=== PATIENT | female | born 1985 | race Caucasian/White ===

== ENCOUNTER 2016-11-11 20:47 | Inpatient (IN) | payer OTHER ==
[~2016-11-11] VITALS: Ht 170.2 cm; Wt 81.8 kg
[2016-11-11] MEDS ORDERED: SODIUM CHLORIDE 0.9% 1000ML 1,000 ML IV STA ×2 (21:13→23:41)
[2016-11-11] MEDS ORDERED: ONDANSETRON INJ 2 MG/ML 2 ML VIAL IV STA ×2 (21:13→23:41)
[2016-11-11 21:55] LABS: BASO % 0.2 %; BASO ABS # 0.01 K/uL (0-0.2); COMPLETE YES; EOS % 1.4 %; HEMATOCRIT 39.7 % (37-47); IG% 0.5 %; LYMPH % 35.1 %; LYMPH ABS # 2.25 K/uL (1.2-3.4); MEAN CELL VOLUME 81.9 fL (80-100); MEAN CORPUSCULAR HEMOGLOBIN 27.6 pg (25-34); MEAN CORPUSCULAR HGB CONC 33.8 g/dl (32-36); MONO % 6.7 %; NEUT % 56.1 %; PLATELET COUNT 263 K/uL (130-400); RED BLOOD COUNT 4.85 M/uL (4.2-5.4); WHITE BLOOD COUNT 6.41 K/uL (4.8-10.8)
[2016-11-11 22:13] LABS: BUN/CREATININE RATIO 5.2 (10-20); CREATININE 0.84 mg/dl (0.60-1.20); POTASSIUM 3.4 mmol/L (3.5-5.1)
[2016-11-11 22:16] LABS: ALB/GLOB RATIO 1.1 (0.9-2)
[2016-11-11 22:21] LABS: CALCIUM 8.2 mg/dl (8.5-10.1)
--- NOTE | 2016-11-11 23:01 | DIAGNOSTIC IMAGING REPORT ---
CHEST AND ABDOMEN 2 VIEWS HISTORY: epigastric pain, vomiting COMPARISON: None. FINDINGS: The lungs are clear. The cardiomediastinal silhouette is within normal limits. There is no pneumoperitoneum or pneumatosis. The bowel gas pattern is unremarkable. No evidence for bowel obstruction. No renal stones. Cholelithiasis. An intrauterine device is seen within the mid pelvis. IMPRESSION: No acute cardiopulmonary process. No evidence for bowel obstruction. Cholelithiasis. Electronically signed by: Imer Holt M.D. 11/11/2016 10:59 PM Dictated Date/Time: 11/11/2016 10:58 PM
[2016-11-11] MEDS ORDERED: MoRPHine SULFATE 10 MG/ML CARP/VIAL IV STA (23:51)
[2016-11-12] MEDS ORDERED: MoRPHine SULFATE 4 MG/ML 1 ML CARP\\VIAL ONE (00:10)
[2016-11-12] MEDS ORDERED: MoRPHine SULFATE 2 MG/ML CARP ONE (00:10)
--- NOTE | 2016-11-12 00:15 | EMERGENCY ROOM VISIT NOTE ---
History First contact with patient: 20:54 Chief Complaint: VOMITING Stated Complaint: NAUSEA,VOMITING,FEVER, WEAKNESS,LOSS OF COLOR Nursing Triage Summary: N/V, abdominal cramps & generalized aches for 3 days. Reports 101F temp 11/10/16- treated with Tylenol. History of Present Illness The patient is a 31 year old female who presents to the Emergency Room with complaints of vomiting and epigastric pain. The patient states that 2 days ago , she ate a meal of khmer fries, fried pickles and fried chicken. About one hour afterward, she developed epigastric abdominal pain and vomiting. She states that she has had continued vomiting and has not been able to keep down anything to eat or drink. She reports the pain is located in her upper abdomen and is crampy in nature. She rates the current discomfort a 4/10. She also states she has had hot and cold flashes. She does report a history of gallbladder issues but has not had her gallbladder removed. She was told she had gallbladder stones at age 15. She has had a previous laparoscopy for ovarian cyst removal and appendectomy. She also reports a history of myocardial infarction but states that she does not follow-up with cardiology for this. She denies any changes in bowel movements, chest pain, shortness of breath or urinary symptoms. She denies any blood in her vomit. Review of Systems A complete 10 point review of systems was reviewed with the patient with pertinent positives and negatives as per history of present illness. All else were negative. Past Medical/Surgical History Medical Problems: (1) Acute calculous cholecystitis Social History Smoking Status: Former Smoker Current/Historical Medications Scheduled Amphetamine-Dextroamphetamine 30MG (Adderall Xr 30MG), 30 MG PO DAILY Desvenlafaxine Succinate Er (Pristiq), 50 MG PO DAILY Risperidone (Risperdal), 2 MG PO HS Allergies Coded Allergies: Paroxetine (Verified Allergy, Severe, SOB/HALLUCINATIONS, 11/12/16) Metoclopramide (Verified Allergy, Intermediate, HIVES, 11/12/16) Prochlorperazine (Verified Allergy, Intermediate, HIVES, 11/12/16) Promethazine (Verified Allergy, Intermediate, HIVES, 11/12/16) Physical Exam Vital Signs Date Time Temp Pulse Resp B/P Pulse Ox O2 Delivery O2 Flow Rate FiO2 11/12/16 00:27 77 16 125/68 97 Room Air 5/28/17 23:33 81 16 106/67 99 Room Air 11/11/16 20:51 37.0 118 20 111/69 95 Room Air Physical Exam VITALS: Vitals are noted on the nurse's note and reviewed by myself. Vital signs stable. GENERAL: This is a 31-year-old female, in no acute distress, nondiaphoretic, well-developed well-nourished. SKIN: Capillary reflex less than 2 seconds. HEENT: Normocephalic. PERRLA. EOMI. Nares patent. Mucous membranes moist. Neck is supple without nuchal rigidity. HEART: Regular rate and rhythm without murmurs gallops or rubs. LUNGS: Clear to auscultation bilaterally without wheezes, rales or rhonchi. ABDOMEN: Positive bowel sounds x 4. Soft, moderate tenderness to palpation of the epigastric region and right upper quadrant. No guarding or rebound tenderness. NEURO: Patient was alert and oriented to person place and time. Medical Decision & Procedures ER Provider Diagnostic Interpretation: CHEST AND ABDOMEN 2 VIEWS FINDINGS: The lungs are clear. The cardiomediastinal silhouette is within normal limits. There is no pneumoperitoneum or pneumatosis. The bowel gas pattern is unremarkable. No evidence for bowel obstruction. No renal stones. Cholelithiasis. An intrauterine device is seen within the mid pelvis. IMPRESSION: No acute cardiopulmonary process. No evidence for bowel obstruction. Cholelithiasis. US GALLBLADDER: Cholelithiasis including a 1 cm impacted stone in the gallbladder neck. Borderline gallbladder wall thickness. Normal caliber common bile duct. Heterogenous echogenic liver parenchyma, can be seen with fatty infiltration or other etiologies. Pancreas not well visualized. Radiologist: Zayra Cuevas MD Laboratory Results 11/11/16 21:45 Red Blood Count 4.85, Mean Corpuscular Volume 81.9, Mean Corpuscular Hemoglobin 27.6, Mean Corpuscular Hemoglobin Concent 33.8, Mean Platelet Volume 11.0, Neutrophils (%) (Auto) 56.1, Lymphocytes (%) (Auto) 35.1, Monocytes (%) (Auto) 6.7, Eosinophils (%) (Auto) 1.4, Basophils (%) (Auto) 0.2, Neutrophils # (Auto) 3.60, Lymphocytes # (Auto) 2.25, Monocytes # (Auto) 0.43, Eosinophils # (Auto) 0.09, Basophils # (Auto) 0.01 11/11/16 21:45 Test 11/11/16 21:45 White Blood Count 6.41 K/uL (4.8-10.8) Red Blood Count 4.85 M/uL (4.2-5.4) Hemoglobin 13.4 g/dL (12.0-16.0) Hematocrit 39.7 % (37-47) Mean Corpuscular Volume 81.9 fL (80-100) Mean Corpuscular Hemoglobin 27.6 pg (25-34) Mean Corpuscular Hemoglobin Concent 33.8 g/dl (32-36) Platelet Count 263 K/uL (130-400) Mean Platelet Volume 11.0 fL (7.4-10.4) Neutrophils (%) (Auto) 56.1 % Lymphocytes (%) (Auto) 35.1 % Monocytes (%) (Auto) 6.7 % Eosinophils (%) (Auto) 1.4 % Basophils (%) (Auto) 0.2 % Neutrophils # (Auto) 3.60 K/uL (1.4-6.5) Lymphocytes # (Auto) 2.25 K/uL (1.2-3.4) Monocytes # (Auto) 0.43 K/uL (0.11-0.59) Eosinophils # (Auto) 0.09 K/uL (0-0.5) Basophils # (Auto) 0.01 K/uL (0-0.2) RDW Standard Deviation 40.6 fL (36.4-46.3) RDW Coefficient of Variation 13.5 % (11.5-14.5) Immature Granulocyte % (Auto) 0.5 % Immature Granulocyte # (Auto) 0.03 K/uL (0.00-0.02) Anion Gap 10.0 mmol/L (3-11) Est Creatinine Clear Calc Drug Dose 105.5 ml/min Estimated GFR () 108.9 Estimated GFR (Non- 93.9 BUN/Creatinine Ratio 5.2 (10-20) Calcium Level 8.2 mg/dl (8.5-10.1) Total Bilirubin 0.2 mg/dl (0.2-1) Aspartate Amino Transf (AST/SGOT) 22 U/L (15-37) Alanine Aminotransferase (ALT/SGPT) 34 U/L (12-78) Alkaline Phosphatase 87 U/L (45-117) Total Protein 7.8 gm/dl (6.4-8.2) Albumin 4.0 gm/dl (3.4-5.0) Globulin 3.8 gm/dl (2.5-4.0) Albumin/Globulin Ratio 1.1 (0.9-2) Lipase 208 U/L (73-393) Medications Administered Medications (Trade) Dose Ordered Sig/Brunilda Route Start Time Stop Time Status Last Admin Dose Admin Sodium Chloride (Nss 1000ml) 1,000 ml @ 999 mls/hr Q1H1M STAT IV 11/11/16 21:13 11/11/16 22:13 DC 11/11/16 21:59 999 MLS/HR Ondansetron HCl 4 mg 4 mg NOW STAT IV 11/11/16 21:13 11/11/16 21:14 DC 11/11/16 21:59 4 MG Sodium Chloride (Nss 1000ml) 1,000 ml @ 999 mls/hr Q1H1M STAT IV 11/11/16 23:41 11/12/16 00:41 DC 11/12/16 00:18 999 MLS/HR Ondansetron HCl (Zofran Inj) 4 mg NOW STAT IV 11/11/16 23:41 11/11/16 23:42 DC 11/12/16 00:16 4 MG Morphine Sulfate (MoRPHine SULFATE INJ) 2 mg STK-MED ONCE .ROUTE 11/12/16 00:10 11/12/16 00:11 DC 11/12/16 00:18 2 MG Morphine Sulfate 4 mg 4 mg STK-MED ONCE .ROUTE 11/12/16 00:10 11/12/16 00:11 DC 11/12/16 00:17 4 MG Lactated Ringer's (Lr 1000ml) 1,000 ml @ 100 mls/hr Q10H IV 11/12/16 00:25 12/12/16 00:24 11/12/16 20:18 100 MLS/HR ED Course The patient was evaluated as above. Labs were drawn and IV access was obtained. Patient was medicated with 1 L normal saline solution and 4 mg Zofran IV. She declined analgesics. Right upper quadrant ultrasound was performed and read by stat rad as above. Patient was reevaluated and complained of continued nausea and worsening pain. At this time, she was given 6 mg morphine IV, 4 mg Zofran IV and an additional 1 L bolus. Case was discussed with Dr. Paez, the general surgeon education faculty member. He will evaluate the patient. Medical Decision Differential diagnosis includes cholecystitis, pancreatitis, pyelonephritis, gastritis, gastric ulcer, among others. The patient is a 31-year-old female who presents today complaining of abdominal pain and vomiting. The patient does report a history of gallbladder stones. Labs revealed no leukocytosis, concerning anemia or electrolyte abnormalities. Glucose was mildly elevated. Patient has no history of diabetes. Abdominal series showed no evidence of obstruction. Right upper quadrant ultrasound was performed and did show an impacted stone in the gallbladder neck and borderline wall thickening. In this setting, I do feel this represents an acute cholecystitis. Case was discussed with the general surgeon education faculty member who agreed to evaluate the patient. Please see his notes for patient course and disposition. Impression Primary Impression: Acute cholecystitis Departure Information Referrals No Doctor, Assigned (PCP) Patient Instructions My [facility]
--- NOTE | 2016-11-12 00:25 | History and Physical ---
History & Physical Date & Time of Service: November 12, 2016 at 00:19 Chief Complaint: Nausea,Vomiting,Fever, Weakness,Loss Of Color Primary Care Physician: No Doctor, Assigned History of Present Illness Source: patient, family 2-3 days of upper abd pain, nausea and vomiting to ER- U/S showing thickened gb w/ stone in neck of gb wbc, LFTs ok Social History Smoking Status: Former Smoker Allergies Coded Allergies: Paroxetine (Verified Allergy, Severe, SOB/HALLUCINATIONS, 11/12/16) Metoclopramide (Verified Allergy, Intermediate, HIVES, 11/12/16) Prochlorperazine (Verified Allergy, Intermediate, HIVES, 11/12/16) Promethazine (Verified Allergy, Intermediate, HIVES, 11/12/16) Review of Systems Constitutional: No chills, No fever Respiratory: No cough, No shortness of breath Cardiovascular: No chest pain Abdomen: + nausea, + pain, + vomiting Musculoskeletal: + joint pain Genitourinary - Female: No dysuria Neurologic: No weakness Endocrine: No fatigue Integumentary: No rash Physical Exam Vital Signs Date Time Temp Pulse Resp B/P Pulse Ox O2 Delivery O2 Flow Rate FiO2 11/11/16 23:33 81 16 106/67 99 Room Air 11/11/16 20:51 37.0 118 20 111/69 95 Room Air General Appearance: WD/WN, no apparent distress Head: atraumatic Neck: supple Respiratory/Chest: normal breath sounds, no respiratory distress Cardiovascular: regular rate, rhythm Abdomen/GI: soft, + tenderness (RUQ and epigastric tenderness) Extremities/Musculoskelatal: no pedal edema Neurologic/Psych: alert Skin: no rash Diagnostics Laboratory Results Results Past 24 Hours Test 11/11/16 21:45 Range/Units White Blood Count 6.41 4.8-10.8 K/uL Red Blood Count 4.85 4.2-5.4 M/uL Hemoglobin 13.4 12.0-16.0 g/dL Hematocrit 39.7 37-47 % Mean Corpuscular Volume 81.9 80-100 fL Mean Corpuscular Hemoglobin 27.6 25-34 pg Mean Corpuscular Hemoglobin Concent 33.8 32-36 g/dl Platelet Count 263 130-400 K/uL Mean Platelet Volume 11.0 7.4-10.4 fL Neutrophils (%) (Auto) 56.1 % Lymphocytes (%) (Auto) 35.1 % Monocytes (%) (Auto) 6.7 % Eosinophils (%) (Auto) 1.4 % Basophils (%) (Auto) 0.2 % Neutrophils # (Auto) 3.60 1.4-6.5 K/uL Lymphocytes # (Auto) 2.25 1.2-3.4 K/uL Monocytes # (Auto) 0.43 0.11-0.59 K/uL Eosinophils # (Auto) 0.09 0-0.5 K/uL Basophils # (Auto) 0.01 0-0.2 K/uL RDW Standard Deviation 40.6 36.4-46.3 fL RDW Coefficient of Variation 13.5 11.5-14.5 % Immature Granulocyte % (Auto) 0.5 % Immature Granulocyte # (Auto) 0.03 0.00-0.02 K/uL Sodium Level 142 136-145 mmol/L Potassium Level 3.4 3.5-5.1 mmol/L Chloride Level 107 98-107 mmol/L Carbon Dioxide Level 25 21-32 mmol/L Anion Gap 10.0 3-11 mmol/L Blood Urea Nitrogen 4 7-18 mg/dl Creatinine 0.84 0.60-1.20 mg/dl Est Creatinine Clear Calc Drug Dose 105.5 ml/min Estimated GFR () 108.9 Estimated GFR (Non- 93.9 BUN/Creatinine Ratio 5.2 10-20 Random Glucose 146 70-99 mg/dl Calcium Level 8.2 8.5-10.1 mg/dl Total Bilirubin 0.2 0.2-1 mg/dl Aspartate Amino Transf (AST/SGOT) 22 15-37 U/L Alanine Aminotransferase (ALT/SGPT) 34 12-78 U/L Alkaline Phosphatase 87 45-117 U/L Total Protein 7.8 6.4-8.2 gm/dl Albumin 4.0 3.4-5.0 gm/dl Globulin 3.8 2.5-4.0 gm/dl Albumin/Globulin Ratio 1.1 0.9-2 Lipase 208 73-393 U/L Impression Assessment and Plan 11/12/16- admit with abd pain, N/V- stone in neck of gb- consistent with acute cholecystitis- for laparoscopic kris tomorrow h/o Rheum arthritis, possible cardiac issue in 2013- will ask medical team to check pt
[2016-11-12] MEDS ORDERED: HYDROmorphone INJ 0.5 MG/0.5 ML SYR IV PRN (00:30)
[2016-11-12 00:59] VITALS: BP 125/68; PULSE 79; TEMP 36.7; O2SAT 95; Ht 170.2 cm; Wt 81.8 kg
[2016-11-12] MEDS ORDERED: RISP2TAB22 PO (01:01)
[2016-11-12] MEDS ORDERED: DESV50TA PO (01:01)
[2016-11-12] MEDS ORDERED: AMPH30CA3 PO (01:01)
[2016-11-12 02:09] VITALS: BP 130/88; PULSE 78; TEMP 36.7; O2SAT 96
[2016-11-12] MEDS: LACTATED RINGER'S 1000ML 1,000 ML IV SCH ×3 (02:20→20:18)
[2016-11-12] MEDS: CEFOXITIN IV 1,000 MG in DEXTROSE 5% 50ML 50 ML IV SCH ×4 (02:46→20:18)
[2016-11-12] MEDS ORDERED: BUPRENORPHINE 5 MCG/HR TDSY TD SCH (03:30)
--- NOTE | 2016-11-12 03:51 | Medical Consult ---
Consultation Date of Consultation: November 12, 2016. Attending Physician: Chirag Paez M.D. Reason for Consultation: Pre-op History of Present Illness 31 y/o F Hx RA, depression, ADHD, MD in 2013. Pt is visiting from [place]. Developed acute RUQ abdominal pain which was unremitting and she presented to the hospital. An US revealed cholecystitis with an impacted 1cm stone at the gallbladder neck. She was admitted for a cholecystectomy by the surgical service. A consult was requested due to her unusual medical history. The pt states that she had an MD in 2013 although the reason was unspecified. She was told to follow-up with a tube drawing supervisor and was unable to do so at the time. She recently had a normal echocardiogram, however, she then had an abnormal stress test and is scheduled to see her tube drawing supervisor again in the coming month. She states that her father had an MD at the age of 18 for unknown reasons. She did not have a cardiac catheterization and was told that her MD was due to stress which may indicate underlying vasospastic disease. It is notable that she takes Adderall fro ADHD which is not likely to be prescribed to an individual with coronary vasospastic disease. The pt was diagnosed with RA several moths ago. She has not yet seen a technology sales consultant as she states it takes a very long time to do so in [facility]. She is being treated symptomatically only with a Buprenorphine patch. She has chronic joint pain most pronounced in her knees. She has not had major surgery previously. She denies significant SOB or CP with exertion although her exercise tolerance is difficult to gauge. She does not normally ascend stairs and does not exercise beyond walking. EKG reviewed: NSR, normal axis - no evidence of previous MD Past Medical/Surgical History 1) MD - unknown etiology - 2014 - recent abnormal stress test 2) ADHD 3) Depression 4) RA Family History Father had an MD at age 18 and again in his 40s Mother has RA Social History She does not drink or smoke She attends art school in [facility] She denies any drug use Smoking Status: Former Smoker Alcohol Use: none Allergies Coded Allergies: Paroxetine (Verified Allergy, Severe, SOB/HALLUCINATIONS, 11/12/16) Metoclopramide (Verified Allergy, Intermediate, HIVES, 11/12/16) Prochlorperazine (Verified Allergy, Intermediate, HIVES, 11/12/16) Promethazine (Verified Allergy, Intermediate, HIVES, 11/12/16) Current Inpatient Medications Current Inpatient Medications Medications (Trade) Dose Ordered Sig/Brunilda Route Start Time Stop Time Status Last Admin Dose Admin Lactated Ringer's 1,000 ml @ 100 mls/hr Q10H IV 11/12/16 00:25 12/12/16 00:24 11/12/16 02:20 100 MLS/HR Cefoxitin Sodium/ Dextrose (Mefoxin IV/D5 50ml) 60 ml @ 100 mls/hr Q6H IV 11/12/16 02:00 11/22/16 01:59 11/12/16 02:46 100 MLS/HR Hydromorphone HCl (Dilaudid Inj) FOR PAIN 0.5-1MG 0.5MG ... Q3H PRN IV 11/12/16 00:30 11/26/16 00:29 Ondansetron HCl (Zofran Inj) 4 mg Q6H PRN IV 11/12/16 00:30 12/12/16 00:29 Review of Systems Constitutional: No chills, No fever, No sweats Eyes: No eye pain, No worsening of vision ENT: No hearing loss, No nasal symptoms, No unusual epistaxis Respiratory: No cough, No sputum, No wheezing Cardiovascular: No PND, No chest pain, No orthopnea Abdomen: + nausea, + pain, No vomiting Musculoskeletal: + joint pain, No muscle pain Genitourinary - Female: No dysuria, No hematuria, No urinary frequency, No urinary incontinence, No urinary retention, No urinary urgency Neurologic: No memory loss, No paralysis, No weakness Psychiatric: No depression symptoms Endocrine: No fatigue Hematologic / Lymphatic: No abnormal bleeding/bruising Integumentary: No rash Allergic / Immunologic: No environmental allergies Physical Exam Date Time Temp Pulse Resp B/P Pulse Ox O2 Delivery O2 Flow Rate FiO2 11/12/16 02:12 Room Air 11/12/16 02:09 36.7 78 16 130/88 96 Room Air 11/12/16 00:59 36.7 79 16 125/68 95 Room Air 11/12/16 00:27 77 16 125/68 97 Room Air 11/11/16 23:33 81 16 106/67 99 Room Air 11/11/16 20:51 37.0 118 20 111/69 95 Room Air General Appearance: WD/WN, no apparent distress Head: normocephalic, atraumatic Eyes: normal inspection, EOMI ENT: normal ENT inspection, pharynx normal Neck: supple, no JVD Respiratory/Chest: chest non-tender, lungs clear, normal breath sounds, no respiratory distress, no accessory muscle use Cardiovascular: regular rate, rhythm, no edema, no gallop, no JVD, no murmur, normal peripheral pulses Abdomen/GI: normal bowel sounds, soft, + tenderness Back: normal inspection, no CVA tenderness, no muscle spasm, normal range of motion Extremities/Musculoskelatal: normal inspection, no calf tenderness, normal capillary refill, no pedal edema, normal range of motion Neurologic/Psych: farmer vegetable II-XII nml as tested, no motor/sensory deficits, alert, normal mood/affect, normal reflexes, oriented x 3 Skin: normal color, warm/dry, no rash Laboratory Results Last 24 Hours Test 11/11/16 21:45 White Blood Count 6.41 K/uL Red Blood Count 4.85 M/uL Hemoglobin 13.4 g/dL Hematocrit 39.7 % Mean Corpuscular Volume 81.9 fL Mean Corpuscular Hemoglobin 27.6 pg Mean Corpuscular Hemoglobin Concent 33.8 g/dl Platelet Count 263 K/uL Mean Platelet Volume 11.0 fL Neutrophils (%) (Auto) 56.1 % Lymphocytes (%) (Auto) 35.1 % Monocytes (%) (Auto) 6.7 % Eosinophils (%) (Auto) 1.4 % Basophils (%) (Auto) 0.2 % Neutrophils # (Auto) 3.60 K/uL Lymphocytes # (Auto) 2.25 K/uL Monocytes # (Auto) 0.43 K/uL Eosinophils # (Auto) 0.09 K/uL Basophils # (Auto) 0.01 K/uL RDW Standard Deviation 40.6 fL RDW Coefficient of Variation 13.5 % Immature Granulocyte % (Auto) 0.5 % Immature Granulocyte # (Auto) 0.03 K/uL Sodium Level 142 mmol/L Potassium Level 3.4 mmol/L Chloride Level 107 mmol/L Carbon Dioxide Level 25 mmol/L Anion Gap 10.0 mmol/L Blood Urea Nitrogen 4 mg/dl Creatinine 0.84 mg/dl Est Creatinine Clear Calc Drug Dose 105.5 ml/min Estimated GFR () 108.9 Estimated GFR (Non- 93.9 BUN/Creatinine Ratio 5.2 Random Glucose 146 mg/dl Calcium Level 8.2 mg/dl Total Bilirubin 0.2 mg/dl Aspartate Amino Transf (AST/SGOT) 22 U/L Alanine Aminotransferase (ALT/SGPT) 34 U/L Alkaline Phosphatase 87 U/L Total Protein 7.8 gm/dl Albumin 4.0 gm/dl Globulin 3.8 gm/dl Albumin/Globulin Ratio 1.1 Lipase 208 U/L Assessment & Plan 31 y/o F Hx RA, depression, ADHD, MD in 2013. Pt is visiting from [place]. Developed acute RUQ abdominal pain which was unremitting and she presented to the hospital. An US revealed cholecystitis with an impacted 1cm stone at the gallbladder neck. She was admitted for a cholecystectomy by the surgical service. A consult was requested due to her unusual medical history. Based on our available information her RCRI is 0.9% however we cannot r/o Coronary vasospasm or CAD for that matter based on her history. She is not taking any related meds and as mentioned is taking Adderall which further clouds the etiology of her previous MD. Records have been requested from [facility] in [place]. We will consult cardiology to advise on minimizing risk and treating any potential CP which may occur. We will hold her Adderall and cont her depression meds. Additionally she normally wears a Buprenorphine patch and would be prone to narcotic withdrawal. This may also present a challenge if she requires additional Narcotics for pain control as the patch would technically reduce there effectivity. Would recommend reapplying her patch one day after surgery and treating breakthrough pain with non-narcotic analgesics. The above was discussed in detail with the pt and Surgeon.. Total time for this consult - 45 min - outside records are pending
[2016-11-12] MEDS: ONDANSETRON INJ 2 MG/ML 2 ML VIAL IV PRN (06:25)
[2016-11-12] MEDS: HYDROmorphone INJ 1 MG/ML SYR IV PRN ×3 (06:26→21:25)
--- NOTE | 2016-11-12 06:32 | Surgery Progress Note ---
Surgery Progress Note Date of Service November 12, 2016. Subjective some abd pain h/o heart disease- cardio to see per Dr Carrera Objective Vital Signs: Date Time Temp Pulse Resp B/P Pulse Ox O2 Delivery O2 Flow Rate FiO2 11/12/16 02:12 Room Air 11/12/16 02:09 36.7 78 16 130/88 96 Room Air 11/12/16 00:59 36.7 79 16 125/68 95 Room Air 11/12/16 00:27 77 16 125/68 97 Room Air 11/11/16 23:33 81 16 106/67 99 Room Air 11/11/16 20:51 37.0 118 20 111/69 95 Room Air General Appearance: no apparent distress Respiratory/Chest: no respiratory distress Abdomen: soft, + tenderness Laboratory Results: Results Past 24 Hours Test 11/11/16 21:45 Range/Units White Blood Count 6.41 4.8-10.8 K/uL Red Blood Count 4.85 4.2-5.4 M/uL Hemoglobin 13.4 12.0-16.0 g/dL Hematocrit 39.7 37-47 % Mean Corpuscular Volume 81.9 80-100 fL Mean Corpuscular Hemoglobin 27.6 25-34 pg Mean Corpuscular Hemoglobin Concent 33.8 32-36 g/dl Platelet Count 263 130-400 K/uL Mean Platelet Volume 11.0 7.4-10.4 fL Neutrophils (%) (Auto) 56.1 % Lymphocytes (%) (Auto) 35.1 % Monocytes (%) (Auto) 6.7 % Eosinophils (%) (Auto) 1.4 % Basophils (%) (Auto) 0.2 % Neutrophils # (Auto) 3.60 1.4-6.5 K/uL Lymphocytes # (Auto) 2.25 1.2-3.4 K/uL Monocytes # (Auto) 0.43 0.11-0.59 K/uL Eosinophils # (Auto) 0.09 0-0.5 K/uL Basophils # (Auto) 0.01 0-0.2 K/uL RDW Standard Deviation 40.6 36.4-46.3 fL RDW Coefficient of Variation 13.5 11.5-14.5 % Immature Granulocyte % (Auto) 0.5 % Immature Granulocyte # (Auto) 0.03 0.00-0.02 K/uL Sodium Level 142 136-145 mmol/L Potassium Level 3.4 3.5-5.1 mmol/L Chloride Level 107 98-107 mmol/L Carbon Dioxide Level 25 21-32 mmol/L Anion Gap 10.0 3-11 mmol/L Blood Urea Nitrogen 4 7-18 mg/dl Creatinine 0.84 0.60-1.20 mg/dl Est Creatinine Clear Calc Drug Dose 105.5 ml/min Estimated GFR () 108.9 Estimated GFR (Non- 93.9 BUN/Creatinine Ratio 5.2 10-20 Random Glucose 146 70-99 mg/dl Calcium Level 8.2 8.5-10.1 mg/dl Total Bilirubin 0.2 0.2-1 mg/dl Aspartate Amino Transf (AST/SGOT) 22 15-37 U/L Alanine Aminotransferase (ALT/SGPT) 34 12-78 U/L Alkaline Phosphatase 87 45-117 U/L Total Protein 7.8 6.4-8.2 gm/dl Albumin 4.0 3.4-5.0 gm/dl Globulin 3.8 2.5-4.0 gm/dl Albumin/Globulin Ratio 1.1 0.9-2 Lipase 208 73-393 U/L Assessment & Plan 11/12/16- adm with acute cholecystitis- h/o heart disease cardio eval pending- lap kris today or tomorrow if stable. Dr Sadler covering today
--- NOTE | 2016-11-12 07:12 | DIAGNOSTIC IMAGING REPORT ---
ABDOMINAL ULTRASOUND, RIGHT UPPER QUADRANT HISTORY: epigastric pain, vomiting, hx gall stones. COMPARISON: None. FINDINGS: Pancreas: The pancreatic tail is obscured by overlying bowel gas. The remaining portions of the pancreas are within normal limits. Liver: Unremarkable. Gallbladder: Borderline gallbladder wall thickening at 3 mm. Multiple stones within the gallbladder. This includes a 1 cm stone within the neck of the gallbladder which may be impacted. CBD: 4 mm. Right kidney: No hydronephrosis. IMPRESSION: Borderline gallbladder wall thickening. Multiple stones within the gallbladder. This includes a 1 cm stone within the neck of the gallbladder which may be impacted. Electronically signed by: Imer Holt M.D. 11/12/2016 7:10 AM Dictated Date/Time: 11/12/2016 7:08 AM
[2016-11-12 07:32] VITALS: BP 103/72; PULSE 65; TEMP 36.6; O2SAT 96
[2016-11-12 12:04] LABS: CHOLESTEROL/HDL RATIO 5.7
--- NOTE | 2016-11-12 12:12 | SURGERY PROGRESS NOTE ---
DATE: 11/12/2016 Jenny is resting comfortably. I discussed her case with Dr. Middleton who at this point will not have any cardiac clearance until tomorrow and waiting to get records from her hospitalization from out of town The patient is hungry. Therefore, we will feed her today and tentatively keep her n.p.o. after midnight for possibly a gallbladder tomorrow either by myself or Dr. Paez, once cleared by cardiology. GILL
--- NOTE | 2016-11-12 14:24 | CARDIOLOGY CONSULTATION ---
DATE OF CONSULTATION: 11/12/2016 REFERRING PHYSICIAN: Lee Carrera MD ATTENDING PHYSICIAN: Chirag Paez MD CONSULTING PHYSICIAN: Enrico Leigh JR, MD HISTORY OF PRESENT ILLNESS: The patient is a 31-year-old white female. She lives in [facility]. She is currently visiting the [facility]. On November 09, she developed right upper quadrant pain associated with nausea and vomiting. She subsequently presented to [facility] on the evening of November 11. She has since been admitted to the surgical floor with a diagnosis of acute calculus cholecystitis. Her gallbladder ultrasound performed on November 11 revealed borderline gallbladder wall thickening, multiple stones within the gallbladder, including a 1-cm stone within the neck of the gallbladder, which may be impacted. The patient currently denies any abdominal pain after receiving analgesics. She denies any fevers or chills. No current nausea or vomiting. Recently, she has had constipation. She denies any GI bleeding. The patient had medical consultation with Dr. Carrera overnight. She reported history of a "myocardial infarction" in 2013. She states she was hospitalized at [facility] in [place], [place]. She was hospitalized for 2 days. She was told that she had a myocardial infarction. She does not recall whether this was based on an electrocardiogram or on cardiac enzymes. She had no other cardiac testing performed at that time. She was discharged home with instructions to follow up with internet developer. She did not follow up with a internet developer until a few months ago. She subsequently underwent an echocardiogram. She reports that her resting echo was normal. She states that her stress echocardiogram was abnormal. She does not know whether this was by ECG or echo criteria. The internet developer recommended that she undergo a CT angiogram of her heart. This is scheduled to be performed next month. From a cardiac standpoint, the patient states that she has recently been doing well. She has had no chest pains since July. She has episodes of a slight chest discomfort, which she vaguely describes. These can last for 1-2 hours. There is no exertional component to them. In 2013, she had a squeezing-like chest pain in her retrosternal region. Associated dyspnea. No pleuritic component. Radiation to her jaw. She states that the discomfort at that time lasted for 4-5 hours. At the time, she did have an IUD in place. She recently has had normal exercise tolerance and stamina. Her activities are only limited by flareups of bilateral knee arthralgias. She states that she was diagnosed with rheumatoid arthritis in December of 2015. There is a lack of rheumatology care in her area, in which she lives in [place]. She is scheduled to see a log deck tender in January 2017. She is only currently being treated with analgesics for control of her symptoms of RA. She has pain in her ankles, hands, and knees. She denies any joint swelling or joint deformity. She denies any other chronic underlying systemic illnesses. She states her cholesterol levels have been "okay." She denies hypertension or diabetes mellitus. She smoked cigarettes for 6 months when she was 18 years old. None since then. She does not drink alcohol. She denies drug use. There is a family history of coronary artery disease. She states that her father had myocardial infarctions at age 28 and 35. He is currently age 49. She denies that her father has a history of dyslipidemia. There is a strong family history of coronary artery disease on her father's side. Her father does have diabetes mellitus. Her mother is alive at age 50. She has rheumatoid arthritis and multiple sclerosis. PAST MEDICAL HISTORY: 1. History of heart disease as above. 2. Rheumatoid arthritis. 3. She denies diabetes mellitus, hypertension, or dyslipidemia. 4. ADHD. 5. Depression. PAST SURGICAL HISTORY: Status post appendectomy. PRIOR HOSPITALIZATIONS: Appendectomy, 3 childbirths, and chest pain in 2013. ALLERGIES AND ADVERSE DRUG REACTIONS: METOCLOPRAMIDE, PAROXETINE, PROCHLORPERAZINE, AND PROMETHAZINE. CURRENT MEDICATIONS: Cefoxitin 1 gram IV q. 6 hours, Dilaudid 0.5-1 mg IV q. 3 hours p.r.n. pain, Zofran 4 mg IV q. 6 hours p.r.n. nausea, and lactated Ringer's solution 100 mL per hour. SOCIAL HISTORY: The patient is , lives with her . They live in [facility]. She does not smoke cigarettes or drink alcohol. She does not use any drugs. She and her have 3 children. They are age 7, 5, and 1-1/2. Her is currently watching her children in [place]. The patient is visiting with one of her friends, who is in [facility]. She plans on returning to [place] on November 17. She and her friend drove from [place] to [place]. REVIEW OF SYSTEMS: 1. As above. 2. No fevers or chills. 3. Environmental allergies, manifested by sneezing, retinitis, and watery eyes. Her symptoms were worse when she was in [place]. It improved since she has been in [facility]. 4. No pulmonary complaints. 5. No urinary complaints. 6. No INSOLE BEVELER type complaints. 7. No claudication type complaints. 8. No vascular complaints. 9. No current arthralgias. 10. No skin rashes. 11. No bleeding complaints. PHYSICAL EXAMINATION: GENERAL: The patient is sitting up in her bed. No distress. VITAL SIGNS: This morning with oral temperature 36.6, pulse 65, blood pressure 103/72, and pulse oximetry on room air 96%. HEAD: Normal. EYES: Pupils are equal and round. Anicteric. Conjunctivae normal. No xanthelasma. NECK: No jugular venous distention. Carotids 2/2 bilaterally. Normal upstroke. No bruits. LUNGS: Normal respiratory effort. Clear. No rales or wheezes. HEART: PMI normal. No lifts or heaves. Regular rate and rhythm. S1 and S2 normal. No S3 or S4. No murmur or rub. ABDOMEN: Soft. Mild right upper quadrant tenderness on palpation. No palpable masses or organomegaly. Normal bowel sounds. No bruits. EXTREMITIES: No pretibial edema. No cyanosis or clubbing. NEUROLOGIC: Alert and oriented x3. Motor grossly intact. PSYCHIATRIC: Affect is normal. DATA: An electrocardiogram was not performed prior to my visit with the patient. I ordered an electrocardiogram. It was performed while I was in the room. The electrocardiogram is normal. No evidence myocardial infarction. No evidence of myocardial ischemia. Normal sinus rhythm. Gallbladder ultrasound as reported above. Chest x-ray normal. No infiltrates. No evidence of heart failure. CBC with WBC 6.41, hemoglobin 13.4, hematocrit 39.7, and platelet count 263. Sodium 142, potassium 3.4, chloride 107, carbon dioxide 25, BUN 4, and creatinine 0.84. Random glucose 146. AST 22. ALT 34. Lipase 208. ASSESSMENT: 1. No current or recent anginal type symptoms. Recently, she has had stable exercise tolerance and stamina. 2. No signs or symptoms suggestive of arrhythmia or congestive heart failure. 3. Acute calculus cholecystitis. She is currently afebrile. Her white blood cell count is normal. 4. History of "myocardial infarction" in 2013. She is unclear how this was diagnosed. She was only hospitalized 2 days. She was sent home. Doubt that she would have been sent home from a medical institution if she had had a definite myocardial infarction. Would have expected that she would have undergone some type of testing prior to discharge such as a stress test at a minimum. She has not undergone cardiac catheterization. From a cardiac standpoint, she has done well since 2013. She has had episodes of chest pain lasting up to 1-2 hours since then. These are rare. She states her chest discomfort is mild. Unrelated to activity. She has no exertionally precipitated symptoms suggestive of angina. Her last chest pain was in July of 2016. She reports that in September, she had a normal echocardiogram. This was performed in [place]. She underwent a stress echo, which she reports was abnormal. She does not know whether this was based on ECG or echo criteria. Certainly, she is in a demographic group, where there is a high incidence of false positive stress test results. Her electrocardiogram at this time reveals no evidence of prior myocardial infarction. No evidence of any active myocardial ischemia. Coronary artery disease risk factors would include the family history of coronary artery disease in her father as well as her rheumatoid arthritis. Her father had a myocardial infarction at a young age. He is not an insulin-dependent diabetic. The patient denies that her father has dyslipidemia. Suspect that based on the family history of premature coronary artery disease on her father's side that there could be familial dyslipidemia. The patient herself states that she has good cholesterol. 5. Elevated random glucose. This has not as yet been repeated. RECOMMENDATIONS: 1. Obtain medical records from [place] and [place]. I obtained a medical release form from the patient. I provided the business unit director with the names of the medical institutions, where the patient underwent hospitalization and testing. We will request health information management to obtain these records. As of yet, the medical records have not been requested. 2. Electrocardiogram. The patient had not had any electrocardiogram on this admission. I ordered one. It was performed. It was normal. 3. Based on the patient's current status, her estimated risk of a serious adverse cardiac event such as shock, myocardial infarction, or cardiac arrest with her proposed surgery would be 0.06%. This is based upon the Guo perioperative risk assessment calculator. As stated above, the patient has no current chest pain. No evidence of myocardial ischemia on electrocardiogram. No heart failure. No arrhythmias. Would recommend that she proceed to undergo her urgent surgical procedure. Even if she had underlying coronary artery disease (which is unlikely in light of her age and premenopausal status), she currently has no cardiac symptoms. Any further cardiac testing would not alter this recommendation. 4. Discussed with patient, nursing staff ,Dr. Sadler and Dr. Middleton. 5. Check lipid profile and HgbA1C. Thank you for asking us to see this patient in cardiology consultation. GILL
--- NOTE | 2016-11-12 15:18 | Progress Note ---
Subjective Date of Service: November 12, 2016. Subjective Pt evaluation today including: conversation w/ patient, physical exam, lab review, conversation w/ vocational rehab consultant, review of inpatient medication list Pain: controlled PO Intake: adequate, caused pain and nausea Voiding: no voiding problems patient doing well, less pain than on admission, narcotics sufficient d/w general surgery and cardiology, cleared for OR, plan for cholecystectomy tomorrow Review of Systems All Other Systems: Reviewed and Negative Medications Current Inpatient Medications Medications (Trade) Dose Ordered Sig/Brunilda Route Start Time Stop Time Status Last Admin Dose Admin Lactated Ringer's 1,000 ml @ 100 mls/hr Q10H IV 11/12/16 00:25 12/12/16 00:24 11/12/16 10:41 100 MLS/HR Cefoxitin Sodium/ Dextrose (Mefoxin IV/D5 50ml) 60 ml @ 100 mls/hr Q6H IV 11/12/16 02:00 11/22/16 01:59 11/12/16 13:52 100 MLS/HR Hydromorphone HCl (Dilaudid Inj) FOR PAIN 0.5-1MG 0.5MG ... Q3H PRN IV 11/12/16 00:30 11/26/16 00:29 11/12/16 06:26 1 MG Ondansetron HCl (Zofran Inj) 4 mg Q6H PRN IV 11/12/16 00:30 12/12/16 00:29 11/12/16 06:25 4 MG Objective Vital Signs Date Time Temp Pulse Resp B/P Pulse Ox O2 Delivery O2 Flow Rate FiO2 11/12/16 07:32 36.6 65 18 103/72 96 Room Air 11/12/16 07:15 Room Air 11/12/16 02:12 Room Air 11/12/16 02:09 36.7 78 16 130/88 96 Room Air 11/12/16 00:59 36.7 79 16 125/68 95 Room Air 11/12/16 00:27 77 16 125/68 97 Room Air 11/11/16 23:33 81 16 106/67 99 Room Air 11/11/16 20:51 37.0 118 20 111/69 95 Room Air Physical Exam General Appearance: WD/WN, no apparent distress Eyes: normal inspection, EOMI, sclerae normal Neck: supple, no adenopathy, no JVD, trachea midline Respiratory/Chest: chest non-tender, lungs clear, normal breath sounds, no respiratory distress, no accessory muscle use Cardiovascular: regular rate, rhythm, no edema, no gallop, no JVD, no murmur Abdomen: normal bowel sounds, soft, no organomegaly, + tenderness (RUQ) Extremities: normal range of motion, non-tender, normal inspection, no pedal edema, no calf tenderness Neurologic/Psychiatric: transit planner II-XII nml as tested, no motor/sensory deficits, alert, normal mood/affect, oriented x 3 Skin: normal color, warm/dry, no rash Lymphatic: no adenopathy Laboratory Results Last 24 Hours Test 11/11/16 21:45 11/12/16 11:19 White Blood Count 6.41 K/uL Red Blood Count 4.85 M/uL Hemoglobin 13.4 g/dL Hematocrit 39.7 % Mean Corpuscular Volume 81.9 fL Mean Corpuscular Hemoglobin 27.6 pg Mean Corpuscular Hemoglobin Concent 33.8 g/dl Platelet Count 263 K/uL Mean Platelet Volume 11.0 fL Neutrophils (%) (Auto) 56.1 % Lymphocytes (%) (Auto) 35.1 % Monocytes (%) (Auto) 6.7 % Eosinophils (%) (Auto) 1.4 % Basophils (%) (Auto) 0.2 % Neutrophils # (Auto) 3.60 K/uL Lymphocytes # (Auto) 2.25 K/uL Monocytes # (Auto) 0.43 K/uL Eosinophils # (Auto) 0.09 K/uL Basophils # (Auto) 0.01 K/uL RDW Standard Deviation 40.6 fL RDW Coefficient of Variation 13.5 % Immature Granulocyte % (Auto) 0.5 % Immature Granulocyte # (Auto) 0.03 K/uL Sodium Level 142 mmol/L Potassium Level 3.4 mmol/L Chloride Level 107 mmol/L Carbon Dioxide Level 25 mmol/L Anion Gap 10.0 mmol/L Blood Urea Nitrogen 4 mg/dl Creatinine 0.84 mg/dl Est Creatinine Clear Calc Drug Dose 105.5 ml/min Estimated GFR () 108.9 Estimated GFR (Non- 93.9 BUN/Creatinine Ratio 5.2 Random Glucose 146 mg/dl Calcium Level 8.2 mg/dl Total Bilirubin 0.2 mg/dl Aspartate Amino Transf (AST/SGOT) 22 U/L Alanine Aminotransferase (ALT/SGPT) 34 U/L Alkaline Phosphatase 87 U/L Total Protein 7.8 gm/dl Albumin 4.0 gm/dl Globulin 3.8 gm/dl Albumin/Globulin Ratio 1.1 Lipase 208 U/L Triglycerides Level 304 mg/dl Cholesterol Level 102 mg/dl HDL Cholesterol 18 mg/dl LDL Cholesterol, Calculated 23 mg/dl VLDL Cholesterol, Calculated 61 mg/dl Cholesterol/HDL Ratio 5.7 Assessment and Plan 31 y/o F Hx RA, depression, ADHD, RI in 2013. Pt is visiting from [place]. Developed acute RUQ abdominal pain which was unremitting and she presented to the hospital. An US revealed cholecystitis with an impacted 1cm stone at the gallbladder neck. She was admitted for a cholecystectomy by the surgical service. A consult was requested due to her unusual medical history. - Acute cholecystectomy: pain controlled, continue IV antibiotics, plan for cholecystectomy tomorrow - H/o RI: d/w cardiology, cleared for surgery, doubtful that she has coronary disease - RA: holding Buprenorphine patch until after surgery - ADHD: resume Adderall on discharge
--- NOTE | 2016-11-12 15:20 | Anesthesiology Progress Note ---
Anesthesia Progress Note Date of Service November 12, 2016. Progress Notes This is a 31 y/o w female w/ acute cholecystitis presenting for a Laparoscopic cholecystectomy.PMHx is sig. for Rheumatoid Arthritis,ADHD,Dyslipidemia/ Hypertriglyceridemia and a questionable Hx/o NC in 2013(unlikely).Discussed anesthesia w/pt ,risks vs benefits,all questions answered. Informed consent obtained.ASA 2
[2016-11-12 15:42] VITALS: BP 105/71; PULSE 67; TEMP 36.8; O2SAT 98
[2016-11-12] MEDS ORDERED: LORAZEPAM INJ 0.5 MG in SYRINGE 0.25 ML IV PRN (20:30)
[2016-11-12] MEDS: RISPERIDONE 2 MG TAB PO SCH (20:42)
[2016-11-12 23:10] VITALS: BP 105/72; PULSE 71; TEMP 36.6; O2SAT 96
[2016-11-13] VITALS (9 sets, daily range): BP systolic 96–122; BP diastolic 61–77; PULSE 50–80; TEMP 36.3–36.8; O2SAT 94–100
[2016-11-13] MEDS: CEFOXITIN IV 1,000 MG in DEXTROSE 5% 50ML 50 ML IV SCH ×4 (01:48→20:54)
[2016-11-13] MEDS: LACTATED RINGER'S 1000ML 1,000 ML IV SCH (05:59)
--- NOTE | 2016-11-13 06:42 | Surgery Progress Note ---
Surgery Progress Note Date of Service November 13, 2016. Subjective resting comfortably- for OR today Objective Vital Signs: Date Time Temp Pulse Resp B/P Pulse Ox O2 Delivery O2 Flow Rate FiO2 11/12/16 23:24 Room Air 11/12/16 23:10 36.6 71 16 105/72 96 Room Air 11/12/16 15:42 36.8 67 18 105/71 98 Room Air 11/12/16 15:20 Room Air 11/12/16 07:32 36.6 65 18 103/72 96 Room Air 11/12/16 07:15 Room Air Respiratory/Chest: no respiratory distress Laboratory Results: Results Past 24 Hours Test 11/12/16 11:19 Range/Units Triglycerides Level 304 0-150 mg/dl Cholesterol Level 102 0-200 mg/dl HDL Cholesterol 18 mg/dl LDL Cholesterol, Calculated 23 mg/dl VLDL Cholesterol, Calculated 61 mg/dl Cholesterol/HDL Ratio 5.7 Assessment & Plan 11/13/16- Discussed with Dr Sadler and also reviewed Dr Leigh's note plan for OR- lap kris today- hopefully this am no acute chgs overnight 11/12/16- adm with acute cholecystitis- h/o heart disease cardio eval pending- lap kris today or tomorrow if stable. Dr Sadler covering today 11/12/16- adm with acute cholecystitis- h/o heart disease cardio eval pending- lap kris today or tomorrow if stable. Dr Sadler covering today
[2016-11-13] MEDS ORDERED: ROCURONIUM BROMIDE 10 MG/ML 5 ML VIAL ONE (06:58)
[2016-11-13] MEDS ORDERED: MIDAZOLAM HCL 1 MG/ML 2ML VIAL ONE (06:58)
[2016-11-13] MEDS ORDERED: DEXAMETHASONE SOD INJ 4 MG/ML VIAL ONE (06:58)
[2016-11-13] MEDS ORDERED: PROPOFOL IV EMULSION 10 MG/ML 20 ML VIAL IV ONE (06:58)
[2016-11-13] MEDS ORDERED: NEOSTIGMINE METHYLSULFATE 5 MG/5 ML SYR ONE (06:58)
[2016-11-13] MEDS ORDERED: FENTANYL CITRATE INJ 50 MCG/1 ML 2 ML VIAL ONE (06:58)
[2016-11-13] MEDS ORDERED: ONDANSETRON INJ 2 MG/ML 2 ML VIAL ONE (06:58)
[2016-11-13] MEDS ORDERED: GLYCOPYRROLATE INJ 0.2 MG/ML VIAL ONE ×2 (06:58→07:53)
[2016-11-13] MEDS ORDERED: LIDOCAINE HCL 2% 2 ML VIAL (20MG/ML) ONE (06:58)
[2016-11-13] MEDS ORDERED: CONRAY 60% 50 ML VIAL ONE (07:04)
[2016-11-13] MEDS ORDERED: BUPIVACAINE 0.5 % 5 MG/1 ML MPF 30ML VIAL ONE (07:05)
[2016-11-13] MEDS ORDERED: SCOPOLAMINE 1.5 MG TDSY TD ONE (07:22)
[2016-11-13] MEDS ORDERED: NURSING VERBAL MED ORDER ONE (07:30)
[2016-11-13] MEDS ORDERED: SODIUM CHLORIDE 0.9% INJ 10 ML VIAL ONE (07:47)
[2016-11-13] MEDS ORDERED: HYDROmorphone INJ 2 MG/ML SYR/VIAL ONE (07:47)
[2016-11-13] MEDS ORDERED: LABETALOL HCL IV 5 MG/ML 20ML IV ONE (07:57)
[2016-11-13] MEDS ORDERED: ONDANSETRON INJ 2 MG/ML 2 ML VIAL IV PRN (08:15)
[2016-11-13] MEDS ORDERED: ATROPINE SULFATE 0.1 MG/ML 5ML SYR IV PRN (08:15)
[2016-11-13] MEDS ORDERED: EpHEDrine SULFATE INJ 50 MG/ML AMP IV PRN (08:15)
[2016-11-13] MEDS ORDERED: MEPERIDINE HCL 25 MG/ML CARP IV PRN (08:15)
[2016-11-13] MEDS ORDERED: FENTANYL CITRATE INJ 50 MCG/1 ML 2 ML VIAL IV PRN (08:15)
[2016-11-13] MEDS ORDERED: LABETALOL HCL IV 5 MG/ML 20ML IV PRN (08:15)
[2016-11-13] MEDS ORDERED: HYDROmorphone INJ 1 MG/ML SYR IV PRN (08:15)
--- NOTE | 2016-11-13 08:16 | [facility] Post Operative Brief Note ---
Immediate Operative Summary Operative Date November 13, 2016. Pre-Operative Diagnosis acute cholecystitis Post-Operative Diagnosis same w/ chronic cholecystitis Procedure(s) Performed lap kris Surgeon irvin Polymer Scientist Surgeon(s) Santo Vásquez Estimated Blood Loss 5 cc Findings adhesions and stone in neck of gb Specimens gb Anesthesia gen Complication(s) None Disposition Recovery Room / PACU
[2016-11-13] MEDS ORDERED: KETOROLAC TROMETHAMINE 30 MG/ML VIAL IV. ONE (08:30)
[2016-11-13] MEDS ORDERED: HYDROCODONE/ACETAMOPHEN 5/325MG TAB PO PRN (08:30)
--- NOTE | 2016-11-13 08:43 | OPERATIVE REPORT ---
DATE OF OPERATION: 11/13/2016 PREOPERATIVE DIAGNOSIS: Acute cholecystitis. POSTOPERATIVE DIAGNOSIS: Same with chronic cholecystitis and adhesions. NAME OF OPERATION: Laparoscopic cholecystectomy. STAFF SURGEON: Dr. Paez. ASSOCIATE SOFTWARE DEVELOPER: Dieudonne Vásquez PA-C. OPERATION AND FINDINGS: PROCEDURE: The patient was brought in the operating room and placed on the operating table in supine position. Her abdomen was prepped and draped in usual fashion. Pneumatic stockings and orogastric tube were placed. Marcaine 0.5% plain was used to anesthetize all incisions. Incision was made above the umbilicus, carrying dissection down to the fascia, placing a Veress needle producing pneumoperitoneum. An 11 mm port was placed at the umbilicus and then under visualization, three 5 mm ports placed, 1 cephalad and 2 laterally. Gallbladder was grasped and retracted. There was a stone in the neck of the gallbladder. There were adhesions to the gallbladder. These were taken down and then dissection carried out at the beryl hepatis, identifying the cystic duct. The duct was clipped and transected. The cystic artery was identified, clipped and transected, then the gallbladder dissected away from the liver bed. There was evidence of scar tissue from chronic inflammation. After appropriate hemostasis and irrigation, the gallbladder was placed in an Endobag and then the Endobag was removed through the umbilical site. All ports were then removed. The fascia at the umbilicus closed using interrupted 0 Vicryl suture. Subcutaneous tissue reapproximated using 0 Vicryl suture and then the skin reapproximated using subcuticular 4-0 Monocryl and Dermabond. The patient was transferred to recovery room in stable condition. I attest to the content of the Intraoperative Record and any orders documented therein. Any exceptio ns are noted below.
--- NOTE | 2016-11-13 09:48 | Anesthesiology Progress Note ---
Anesthesia Post Op Note Date & Time November 13, 2016 at 09:48 Vital Signs Pain Intensity: 3 Vital Signs Past 12 Hours Date Time Temp Pulse Resp B/P Pulse Ox O2 Delivery O2 Flow Rate FiO2 11/13/16 09:30 36.2 47 12 103/64 100 Nasal Cannula 2 11/13/16 09:20 52 19 96/70 99 Nasal Cannula 2 11/13/16 09:10 46 14 99/62 100 Nasal Cannula 2 11/13/16 09:00 46 12 104/66 100 Mask 10 11/13/16 08:50 51 13 97/62 100 Mask 10 11/13/16 08:40 53 10 93/64 97 Mask 10 11/13/16 08:32 36.1 61 14 98/66 100 Mask 10 11/13/16 06:54 36.5 74 16 105/69 99 Room Air 11/12/16 23:24 Room Air 11/12/16 23:10 36.6 71 16 105/72 96 Room Air Notes Mental Status: alert / awake / arousable, participated in evaluation Pt Amnestic to Procedure: Yes Nausea / Vomiting: adequately controlled Pain: adequately controlled Airway Patency, RR, SpO2: stable & adequate BP & HR: stable & adequate Hydration State: stable & adequate Anesthetic Complications: no major complications apparent
[2016-11-13] MEDS: DESVENLAFAXINE SUCCINATE 50 MG TABCR PO SCH (10:08)
--- NOTE | 2016-11-13 10:17 | CARDIOLOGY PROGRESS NOTE ---
DATE: 11/13/2016 HISTORY OF PRESENT ILLNESS: Jenny is a 31-year-old white female who was admitted on 11/11/2016 with an acute cholecystitis. The patient underwent a laparoscopic cholecystectomy earlier today, and is currently being seen in the PACU. The patient offers no complaints at this time. She specifically denies any chest pain, heaviness, tightness, or pressure. She denies any shortness of breath. No sensation of palpitations. No dizziness. We still have not received her records from [facility] yet. The patient offers no other complaints. PHYSICAL EXAMINATION: VITAL SIGNS: Temperature is 36.1 degrees temporarily. Pulse rate 52 and regular, respiratory rate is 14 and unlabored, blood pressure is 96/70, SpO2 is 99% on 2 liters oxygen via nasal cannula. GENERAL: The patient is in no acute distress. She is somnolent, but arouses to verbal stimuli. HEENT: Head is atraumatic, normocephalic. EOMs intact. Sclerae are anicteric. Face is symmetric. No perioral cyanosis. NECK: Without thyromegaly, adenopathy or JVD. CHEST AND LUNGS: Clear to auscultation throughout all lung wood, no wheezes, rales or rhonchi. CARDIOVASCULAR: S1 and S2 are regular, bradycardic, without obvious murmur, gallop or rub. PMI is nondisplaced. No lifts, heaves, or thrills. No abdominal, aortic or renal bruits. ABDOMEN: Dressings intact. EXTREMITIES: Without clubbing, cyanosis or edema. ASSESSMENT: 1. Acute calculous cholecystitis s/p laparoscopic cholecystectomy earlier today. 2. History of "myocardial infarction" in 2013. This does not appear to be the case. Awaiting records from [facility] regarding this diagnosis. 3. Normal EKG tracing. 4. No angina pectoris or anginal equivalent symptoms. 5. No signs or symptoms of heart failure. 6. No symptoms suggestive of dysrhythmia. 7. Sinus bradycardia is likely medication induced. PLAN: 1. Still awaiting records from outside facility. 2. The patient is doing well. Vital signs are stable. 3. Monitor usual postoperative laboratories. 4. DVT prophylaxis as per surgeon. 5. Encouraged the patient to get up and walking, moving around when able. 6. There is no need for further cardiac workup at this time. 7. We will continue to follow. Patient seen and examined by me. Agree with above. Cardiac status is stable. Kaur Leigh MD [facility]
[2016-11-13] MEDS ORDERED: KETOROLAC TROMETHAMINE 30 MG/ML VIAL ONE (10:39)
[2016-11-13 11:31] LABS: CALCIUM 8.2 mg/dl (8.5-10.1); CREATININE 0.83 mg/dl (0.60-1.20); POTASSIUM 3.8 mmol/L (3.5-5.1)
[2016-11-13] MEDS: HYDROCODONE/ACETAMOPHEN 5/325MG TAB PO PRN ×2 (14:56→19:25)
[2016-11-13] MEDS: CHECK SCOPOLAMINE PATCH PLACEMENT SCH ×2 (15:49→23:44)
--- NOTE | 2016-11-13 16:37 | Progress Note ---
Subjective Date of Service: November 13, 2016. Subjective Pt evaluation today including: conversation w/ patient, conversation w/ family , physical exam, lab review, review of inpatient medication list Pain: post op pain PO Intake: tolerating some solid food after surgery Voiding: no voiding problems lap kris today, no complications, resting comfortably Problem List Medical Problems: (1) Acute cholecystitis Status: Acute Review of Systems Constitutional: + fatigue, + weakness Abdomen: + pain (incisional) All Other Systems: Reviewed and Negative Medications Current Inpatient Medications Medications (Trade) Dose Ordered Sig/Brunilda Route Start Time Stop Time Status Last Admin Dose Admin Cefoxitin Sodium/ Dextrose (Mefoxin IV/D5 50ml) 60 ml @ 100 mls/hr Q6H IV 11/12/16 02:00 11/22/16 01:59 11/13/16 13:57 100 MLS/HR Hydromorphone HCl (Dilaudid Inj) FOR PAIN 0.5-1MG 0.5MG ... Q3H PRN IV 11/12/16 00:30 11/26/16 00:29 11/12/16 21:25 1 MG Ondansetron HCl (Zofran Inj) 4 mg Q6H PRN IV 11/12/16 00:30 12/12/16 00:29 11/12/16 06:25 4 MG Risperidone 2 mg 2 mg HS PO 11/12/16 21:00 12/12/16 20:59 11/12/16 20:42 2 MG Lorazepam/Syringe (Ativan Inj/ Syringe) 0.5 ml @ 0.5 mls/min Q4H PRN IV 11/12/16 20:30 12/12/16 20:29 11/12/16 20:57 0.5 MLS/MIN Desvenlafaxine Succinate (Pristiq) 50 mg DAILY PO 11/13/16 09:00 12/13/16 08:59 11/13/16 10:08 50 MG Miscellaneous (Remove Transderm-Scop Patch) 1 ea Q72H N/A 11/16/16 06:00 11/16/16 06:01 Miscellaneous Information (Check Scopolamine Patch Placement) 1 ea QS N/A 11/13/16 16:00 11/15/16 05:59 11/13/16 15:49 1 EA Miscellaneous Information (Order Awaiting Action) 1 ea QS N/A 11/13/16 16:00 12/13/16 15:59 Acetaminophen/ Hydrocodone Bitart ([place] 5/325 Tab) 1 tab Q4 PRN PO 11/13/16 08:30 11/27/16 08:29 Acetaminophen/ Hydrocodone Bitart ([place] 5/325 Tab) 2 tab Q4 PRN PO 11/13/16 08:30 11/27/16 08:29 11/13/16 14:56 2 TAB Objective Vital Signs Date Time Temp Pulse Resp B/P Pulse Ox O2 Delivery O2 Flow Rate FiO2 11/13/16 15:14 Nasal Cannula 2.0 11/13/16 15:10 36.7 73 16 96/65 98 Nasal Cannula 2.0 11/13/16 13:02 36.5 66 16 108/75 94 Nasal Cannula 2.0 11/13/16 12:02 36.3 64 18 102/70 97 Nasal Cannula 2.0 11/13/16 11:00 36.4 60 16 108/72 98 Nasal Cannula 11/13/16 10:41 36.5 56 16 102/70 100 Nasal Cannula 2.0 11/13/16 10:15 Nasal Cannula 2.0 11/13/16 10:00 Nasal Cannula 2.0 11/13/16 10:00 36.5 50 14 101/68 100 Nasal Cannula 2.0 11/13/16 09:40 51 12 96/66 100 Nasal Cannula 2 11/13/16 09:30 36.2 47 12 103/64 100 Nasal Cannula 2 11/13/16 09:20 52 19 96/70 99 Nasal Cannula 2 11/13/16 09:10 46 14 99/62 100 Nasal Cannula 2 11/13/16 09:00 46 12 104/66 100 Mask 10 11/13/16 08:50 51 13 97/62 100 Mask 10 11/13/16 08:40 53 10 93/64 97 Mask 10 11/13/16 08:32 36.1 61 14 98/66 100 Mask 10 11/13/16 06:54 36.5 74 16 105/69 99 Room Air 11/12/16 23:24 Room Air 11/12/16 23:10 36.6 71 16 105/72 96 Room Air Physical Exam General Appearance: WD/WN, no apparent distress Eyes: normal inspection, EOMI, sclerae normal ENT: normal ENT inspection, hearing grossly normal, pharynx normal Neck: supple, no adenopathy, no JVD, trachea midline Respiratory/Chest: chest non-tender, lungs clear, normal breath sounds, no respiratory distress, no accessory muscle use Cardiovascular: regular rate, rhythm, no edema, no gallop, no JVD, no murmur Abdomen: normal bowel sounds, soft, no organomegaly, + tenderness (incisions) Extremities: normal range of motion, non-tender, normal inspection, no pedal edema, no calf tenderness, pelvis stable 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, no motor/sensory deficits, alert, normal mood/affect, oriented x 3 Skin: normal color, warm/dry, no rash Lymphatic: no adenopathy Laboratory Results Last 24 Hours Test 11/13/16 07:25 11/13/16 10:49 Bedside Urine Test NEG Sodium Level 144 mmol/L Potassium Level 3.8 mmol/L Chloride Level 109 mmol/L Carbon Dioxide Level 29 mmol/L Anion Gap 6.0 mmol/L Blood Urea Nitrogen 7 mg/dl Creatinine 0.83 mg/dl Est Creatinine Clear Calc Drug Dose 110.0 ml/min Estimated GFR () 110.4 Estimated GFR (Non- 95.3 BUN/Creatinine Ratio 9.0 Random Glucose 131 mg/dl Calcium Level 8.2 mg/dl Assessment and Plan 31 y/o F Hx RA, depression, ADHD, [place] in 2013. Pt is visiting from [place]. Developed acute RUQ abdominal pain which was unremitting and she presented to the hospital. An US revealed cholecystitis with an impacted 1cm stone at the gallbladder neck. She was admitted for a cholecystectomy by the surgical service. A consult was requested due to her unusual medical history. - Acute cholecystectomy: pain controlled, continue IV antibiotics, s/p lap kris today, tolerated well advance diet, pain control d/c per general surgery since they are primary - H/o UT: d/w cardiology, cleared for surgery, doubtful that she has coronary disease no issues post op - RA: holding Buprenorphine patch until after surgery, can resume tomorrow - ADHD: resume Adderall on discharge
[2016-11-13] MEDS: RISPERIDONE 2 MG TAB PO SCH (20:55)
[2016-11-14] MEDS: CEFOXITIN IV 1,000 MG in DEXTROSE 5% 50ML 50 ML IV SCH ×4 (02:20→20:33)
[2016-11-14 04:04] VITALS: BP 106/65; PULSE 69; TEMP 36.8; O2SAT 93
--- NOTE | 2016-11-14 06:17 | Surgery Progress Note ---
Surgery Progress Note Date of Service November 14, 2016. Subjective resting comfortably, no acute chgs overnight Objective Vital Signs: Date Time Temp Pulse Resp B/P Pulse Ox O2 Delivery O2 Flow Rate FiO2 11/14/16 04:04 36.8 69 16 106/65 93 Room Air 11/13/16 23:40 Room Air 11/13/16 22:45 36.8 62 16 122/77 95 Room Air 11/13/16 19:15 36.8 80 16 98/61 98 Nasal Cannula 2.0 11/13/16 15:14 Nasal Cannula 2.0 11/13/16 15:10 36.7 73 16 96/65 98 Nasal Cannula 2.0 11/13/16 13:02 36.5 66 16 108/75 94 Nasal Cannula 2.0 11/13/16 12:02 36.3 64 18 102/70 97 Nasal Cannula 2.0 11/13/16 11:00 36.4 60 16 108/72 98 Nasal Cannula 11/13/16 10:41 36.5 56 16 102/70 100 Nasal Cannula 2.0 11/13/16 10:15 Nasal Cannula 2.0 11/13/16 10:00 Nasal Cannula 2.0 11/13/16 10:00 36.5 50 14 101/68 100 Nasal Cannula 2.0 11/13/16 09:40 51 12 96/66 100 Nasal Cannula 2 11/13/16 09:30 36.2 47 12 103/64 100 Nasal Cannula 2 11/13/16 09:20 52 19 96/70 99 Nasal Cannula 2 11/13/16 09:10 46 14 99/62 100 Nasal Cannula 2 11/13/16 09:00 46 12 104/66 100 Mask 10 11/13/16 08:50 51 13 97/62 100 Mask 10 11/13/16 08:40 53 10 93/64 97 Mask 10 11/13/16 08:32 36.1 61 14 98/66 100 Mask 10 11/13/16 06:54 36.5 74 16 105/69 99 Room Air General Appearance: no apparent distress Respiratory/Chest: no respiratory distress Abdomen: non distended Incision(s): intact Laboratory Results: Results Past 24 Hours Test 11/13/16 07:25 11/13/16 10:49 Range/Units Bedside Urine Test NEG NEG Sodium Level 144 136-145 mmol/L Potassium Level 3.8 3.5-5.1 mmol/L Chloride Level 109 98-107 mmol/L Carbon Dioxide Level 29 21-32 mmol/L Anion Gap 6.0 3-11 mmol/L Blood Urea Nitrogen 7 7-18 mg/dl Creatinine 0.83 0.60-1.20 mg/dl Est Creatinine Clear Calc Drug Dose 110.0 ml/min Estimated GFR () 110.4 Estimated GFR (Non- 95.3 BUN/Creatinine Ratio 9.0 10-20 Random Glucose 131 70-99 mg/dl Calcium Level 8.2 8.5-10.1 mg/dl Assessment & Plan 11/14/16- s/p lap kris- chronic chgs w/ stone in neck- reassess later this am- possible d/c today 11/13/16- Discussed with Dr Sadler and also reviewed Dr Leigh's note plan for OR- lap kris today- hopefully this am no acute chgs overnight 11/12/16- adm with acute cholecystitis- h/o heart disease cardio eval pending- lap kris today or tomorrow if stable. Dr Sadler covering today 11/13/16- Discussed with Dr Sadler and also reviewed Dr Leigh's note plan for OR- lap kris today- hopefully this am no acute chgs overnight 11/12/16- adm with acute cholecystitis- h/o heart disease cardio eval pending- lap kris today or tomorrow if stable. Dr Sadler covering today
[2016-11-14 07:31] VITALS: BP 100/62; PULSE 72; TEMP 36.9; O2SAT 94
[2016-11-14 07:38] VITALS: O2SAT 94
[2016-11-14] MEDS: CHECK SCOPOLAMINE PATCH PLACEMENT SCH ×3 (07:45→23:23)
[2016-11-14] MEDS: DESVENLAFAXINE SUCCINATE 50 MG TABCR PO SCH (08:43)
[2016-11-14] MEDS ORDERED: BUPRENORPHINE 5 MCG/HR TDSY TD SCH (09:30)
--- NOTE | 2016-11-14 09:50 | Progress Note ---
Subjective Date of Service: November 14, 2016. Subjective Pt evaluation today including: conversation w/ patient, physical exam, review of inpatient medication list Pain: moderate, abdominal PO Intake: tolerating food Voiding: no voiding problems discussed pain control, typically uses the Buprenorphine patch which is not resumed yet will add back her patch and can use the other narcotics for breakthrough no vomiting, tolerating diet discussed past history with Dr. Leigh, he reviewed prior records from other hospital no h/o of RI, she presented in the past with atypical chest pain, no evidence of RI, normal echo, negative stress test recently Problem List Medical Problems: (1) Acute cholecystitis Status: Acute Review of Systems Constitutional: + fatigue, + weakness Abdomen: + constipation, + pain All Other Systems: Reviewed and Negative Medications Current Inpatient Medications Medications (Trade) Dose Ordered Sig/Brunilda Route Start Time Stop Time Status Last Admin Dose Admin Cefoxitin Sodium/ Dextrose (Mefoxin IV/D5 50ml) 60 ml @ 100 mls/hr Q6H IV 11/12/16 02:00 11/22/16 01:59 11/14/16 07:38 100 MLS/HR Hydromorphone HCl (Dilaudid Inj) FOR PAIN 0.5-1MG 0.5MG ... Q3H PRN IV 11/12/16 00:30 11/26/16 00:29 11/12/16 21:25 1 MG Ondansetron HCl (Zofran Inj) 4 mg Q6H PRN IV 11/12/16 00:30 12/12/16 00:29 11/12/16 06:25 4 MG Risperidone 2 mg 2 mg HS PO 11/12/16 21:00 12/12/16 20:59 11/13/16 20:55 2 MG Lorazepam/Syringe (Ativan Inj/ Syringe) 0.5 ml @ 0.5 mls/min Q4H PRN IV 11/12/16 20:30 12/12/16 20:29 11/12/16 20:57 0.5 MLS/MIN Desvenlafaxine Succinate (Pristiq) 50 mg DAILY PO 11/13/16 09:00 12/13/16 08:59 11/14/16 08:43 50 MG Miscellaneous (Remove Transderm-Scop Patch) 1 ea Q72H N/A 11/16/16 06:00 11/16/16 06:01 Miscellaneous Information (Check Scopolamine Patch Placement) 1 ea QS N/A 11/13/16 16:00 11/15/16 05:59 11/14/16 07:45 1 EA Miscellaneous Information (Order Awaiting Action) 1 ea QS N/A 11/13/16 16:00 12/13/16 15:59 Acetaminophen/ Hydrocodone Bitart ([place] 5/325 Tab) 1 tab Q4 PRN PO 11/13/16 08:30 11/27/16 08:29 Acetaminophen/ Hydrocodone Bitart ([place] 5/325 Tab) 2 tab Q4 PRN PO 11/13/16 08:30 11/27/16 08:29 11/13/16 19:25 2 TAB Buprenorphine HCl (Butrans Patch) 5 mcg Q7D TD 11/14/16 09:30 12/14/16 09:29 Objective Vital Signs Date Time Temp Pulse Resp B/P Pulse Ox O2 Delivery O2 Flow Rate FiO2 11/14/16 07:31 36.9 72 16 100/62 94 Room Air 11/14/16 04:04 36.8 69 16 106/65 93 Room Air 11/13/16 23:40 Room Air 11/13/16 22:45 36.8 62 16 122/77 95 Room Air 11/13/16 19:15 36.8 80 16 98/61 98 Nasal Cannula 2.0 11/13/16 15:14 Nasal Cannula 2.0 11/13/16 15:10 36.7 73 16 96/65 98 Nasal Cannula 2.0 11/13/16 13:02 36.5 66 16 108/75 94 Nasal Cannula 2.0 11/13/16 12:02 36.3 64 18 102/70 97 Nasal Cannula 2.0 11/13/16 11:00 36.4 60 16 108/72 98 Nasal Cannula 11/13/16 10:41 36.5 56 16 102/70 100 Nasal Cannula 2.0 11/13/16 10:15 Nasal Cannula 2.0 11/13/16 10:00 Nasal Cannula 2.0 11/13/16 10:00 36.5 50 14 101/68 100 Nasal Cannula 2.0 Physical Exam General Appearance: WD/WN, no apparent distress Eyes: normal inspection, EOMI, sclerae normal Neck: supple, no adenopathy, no JVD, trachea midline Respiratory/Chest: chest non-tender, lungs clear, normal breath sounds, no respiratory distress, no accessory muscle use Cardiovascular: regular rate, rhythm, no edema, no gallop, no JVD, no murmur Abdomen: normal bowel sounds, soft, no organomegaly, + tenderness (diffuse, more pronounced at incision sites, no rebound or rigidity) Extremities: normal range of motion, non-tender, normal inspection, no pedal edema, no calf tenderness 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 Pt is visiting from [place]. Developed acute RUQ abdominal pain which was unremitting and she presented to the hospital. An US revealed cholecystitis with an impacted 1cm stone at the gallbladder neck. She was admitted for a cholecystectomy by the surgical service. A consult was requested due to her unusual medical history. - Acute cholecystitis: pain controlled, continue IV antibiotics, s/p lap kris , tolerated well advance diet, pain control per general surgery will resume Buprenorphine patch today to provide her with the typical low level pain control that she always has d/c per general surgery since they are primary stable from medical standpoint for discharge - Reported h/o of RI: this was refuted in prior records that we received she presented with atypical chest pain and RI was ruled out, negative enzymes , normal EKG, normal Echocardiogram she had a normal stress test recently, was just a treadmill with no imaging - RA: resume Buprenorphine patch today to provide her with her typical pain control - ADHD: resume Adderall on discharge stable from medical standpoint, will sign off, d/c per general surgery
[2016-11-14] MEDS: HYDROmorphone INJ 1 MG/ML SYR IV PRN (09:57)
[2016-11-14] MEDS: OXYCODONE/ACETAMINOPHEN 5-325 TAB PO PRN ×4 (13:40→23:23)
[2016-11-14 15:00] VITALS: BP 101/67; PULSE 70; TEMP 36.7; O2SAT 95
--- NOTE | 2016-11-14 19:23 | PROGRESS NOTE ---
DATE: 11/14/2016 SUBJECTIVE: The patient was seen by me this morning in her surgical unit room. She has mild right upper quadrant abdominal tenderness. No nausea. No cardiac symptoms. No chest pain or other anginal type pains. No orthopnea or PND. No palpitations, lightheadedness, or syncope. No leg pain or swelling. No pulmonary complaints. No urinary complaints. No cerebrovascular or peripheral vascular complaints. ALLERGIES AND ADVERSE DRUG REACTIONS: METOCLOPRAMIDE, PAROXETINE, PROCHLORPERAZINE, PROMETHAZINE. CURRENT MEDICATIONS: Oxycodone/acetaminophen 1-2 tabs q. 4 hours p.r.n., Butrans patch 5 mcg every 7 days, Pristiq 50 mg daily, risperidone 2 mg at bedtime, cefoxitin 1 gram IV q. 6 hours, Dilaudid p.r.n. pain intravenous, Zofran IV p.r.n. nausea, scopolamine patch. PHYSICAL EXAMINATION: VITAL SIGNS: This morning revealed oral temperature is 36.9, pulse 72, blood pressure 100/62, pulse oximetry room air 94%. GENERAL APPEARANCE: Shows her to be in no distress. She is lying in her bed. NECK: No jugular venous distention. LUNGS: Normal respiratory effort. Clear. No rales or wheezes. HEART: Regular rate and rhythm. S1, S2 normal. No S3 or S4. No murmur or rub. ABDOMEN: Soft. Mild tenderness to palpation. Normal bowel sounds. EXTREMITIES: No pretibial edema. No calf tenderness. NEUROLOGIC: Alert and oriented x3. Motor grossly intact. PSYCHIATRIC: Affect normal. LABORATORY DATA: No new labs today. Yesterday, BUN was 7 with creatinine 0.83. Potassium is 3.8. Records from [place] and [place] have been obtained. They were all reviewed by me. The patient was admitted on 01/15/2014 to [facility]. She was discharged on 01/16/2014. DISCHARGE DIAGNOSIS: Atypical chest pain. Her cardiac enzymes were negative x3. This was troponin, cardiac enzymes. Her electrocardiograms during the admission were normal. Thus, there is no objective evidence of a myocardial infarction. The electrocardiograms from that hospitalization were personally reviewed by me. The electrocardiograms revealed no diagnostic ischemic ST or T-wave abnormalities. The patient underwent an echocardiogram on 10/11/2016 at [facility] in [place], [place]. Normal left ventricular ejection fraction of 55%. Normal LV wall motion. No significant valvular abnormalities. She underwent a treadmill stress test on October 11. She was reported no chest pain with exercise. Test terminated secondary to fatigue. There were no ischemic ST-segment abnormalities noted. There was comment about T-wave inversions. However, the ST segments were reported to show no significant changes. ASSESSMENT: 1. Stable from a cardiac standpoint, status post laparoscopic cholecystectomy November 13. 2. No signs or symptoms of congestive heart failure or arrhythmia. 3. Blood pressure and heart rate are good. 4. Review of his record showed that she did not have a myocardial infarction in 2013. There is no objective documentation of a myocardial infarction. Her electrocardiogram did not reveal diagnostic evidence of myocardial ischemia. There is clearly no evidence of a myocardial infarction. Her cardiac enzymes were negative. Her echocardiogram in September 2016 revealed no LV wall motion abnormalities. Her stress test in September 2016 reported no diagnostic ischemic ST-segment abnormalities. Thus, the patient has no objective evidence of myocardial ischemia or prior myocardial infarction on available records. RECOMMENDATIONS: 1. No further cardiac workup reevaluation at this time. 2. I will sign off the case at this time. 3. The patient can have follow up with her research technologist in [place]. 4. Increase activity as tolerated. MTDD
[2016-11-14] MEDS: RISPERIDONE 2 MG TAB PO SCH (20:33)
[2016-11-14 23:36] VITALS: BP 100/66; PULSE 60; TEMP 36.6; O2SAT 95
[2016-11-15] MEDS: CEFOXITIN IV 1,000 MG in DEXTROSE 5% 50ML 50 ML IV SCH ×2 (01:21→08:07)
--- NOTE | 2016-11-15 06:28 | Discharge Instructions ---
Discharge Instructions Date of Service Nov 15, 2016. Admission Reason for Admission: Acute Calculous Cholecystitis Discharge Discharge Diagnosis / Problem: acute/chronic cholecystitis Discharge Goals Goal(s): Decrease discomfort, Improve function, Improve disease control Activity Recommendations Activity Limitations: as noted below Lifting Limitations: gradually increase as tolerated Exercise/Sports Limitations: until after follow-up appointment (wait 3 weeks) May Resume Sexual Activity: when tolerated Shower/Bathe: no limitations Driving or Machine Use: resume 3 days after discharge SPECIAL CARE INSTRUCTIONS: * Cover incisions and change daily for comfort/drainage. may leave uncovered with dermabond * May use ibuprofen for pain as tolerated. * Expect some swelling and bruising. Call your doctor if: * Temperature above 101 degrees * Pain not relieved by pain medicine ordered * There is increased drainage or redness from any incision * You have any unanswered questions or concerns [phone]. FOLLOW UP VISIT: If not already scheduled, please call the office for a follow-up visit. for 1-2 weeks- or if you go home- call us so we can check on you and advise you for follow up as needed OFFICE PHONE NUMBER: Dr. Paez Office . Current Hospital Diet Patient's current hospital diet: Regular Diet Discharge Diet Recommended Diet: Regular Diet Procedures Procedures Performed: lap kris Pending Studies Studies pending at discharge: no Laboratory Results Lipid Panel Test 11/12/16 11:19 Range/Units Triglycerides Level 304 H 0-150 mg/dl Cholesterol Level 102 0-200 mg/dl HDL Cholesterol 18 mg/dl Cholesterol/HDL Ratio 5.7 LDL Cholesterol, Calculated 23 mg/dl Medical Emergencies . Who to Call and When: Medical Emergencies: If at any time you feel your situation is an emergency, please call 911 immediately. . Non-Emergent Contact Non-Emergency issues call your: Primary Care Provider, Surgeon . "Provider Documentation" section prepared by Chirag Paez. . VTE Core Measure Inpt VTE Proph given/why not?: SCD's
[2016-11-15] MEDS ORDERED: OXYC-57 PO (06:29)
[2016-11-15 07:00] VITALS: BP 93/61; PULSE 58; TEMP 36.7; O2SAT 96
[2016-11-15 07:45] VITALS: O2SAT 96
[2016-11-15] MEDS: DESVENLAFAXINE SUCCINATE 50 MG TABCR PO SCH (08:09)
[2016-11-15] MEDS: OXYCODONE/ACETAMINOPHEN 5-325 TAB PO PRN (08:13)
[2016-11-15] MEDS: ONDANSETRON INJ 2 MG/ML 2 ML VIAL IV PRN (08:40)
--- NOTE | 2016-11-15 08:43 | DISCHARGE SUMMARY ---
PRINCIPAL DIAGNOSIS: Acute and chronic cholecystitis. PROCEDURES: The patient underwent laparoscopic cholecystectomy. HISTORY OF PRESENT ILLNESS: The patient is a 31-year-old female who is from [place] visiting friends and experienced severe abdominal pain found with gallstones and a stone in the neck of the gallbladder. On 11/12/2016 patient was admitted to the hospital then taken to the operating room in the morning of 11/13/2016 where she underwent laparoscopic cholecystectomy, which she tolerated very well. She has had some pain and nausea postop; however, she has improved and is felt stable for discharge home today. As a note she also has a history of apparent cardiac disease but after evaluation it was not felt that she needed any significant intervention. She was followed by Dr. Middleton and Dr. Leigh.
[2016-11-15 11:00] VITALS: BP 93/61; PULSE 58; TEMP 36.7; O2SAT 96
== END 2016-11-15 11:53 | disposition home or self-care (01) | DRG 419 ==
LOC: ENRESERVTM → ENRESERVDT → C.EDB 20:50 → C.3E 11-12 00:27
PROVIDERS: ADMIT Surgery; ATTEND Surgery
PROC: 0FT44ZZ Resection of Gallbladder, Percutaneous Endoscopic Approach (ICD-10-PCS; principal; 2016-11-13 07:15)
DX: K80.12 Calculus of gallbladder with acute and chronic cholecystitis without obstruction (principal); R07.89 Other chest pain; M06.9 Rheumatoid arthritis, unspecified; F90.9 Attention-deficit hyperactivity disorder, unspecified type; F32.9 Major depressive disorder, single episode, unspecified; R00.1 Bradycardia, unspecified; Z87.891 Personal history of nicotine dependence; Z82.49 Family history of ischemic heart disease and other diseases of the circulatory system